=== PATIENT | male | born 2000 | race Caucasian/White ===

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

== ENCOUNTER → 2020-11-09 | Outpatient (CLI) | payer OTHER ==
[2020-11-09 10:34] LABS: HEMATOCRIT 41.7 % (42.0-52.0); HEMOGLOBIN 13.5 g/dl (13.5-17.5); MEAN CORPUSCULAR HEMOGLOBIN 28.5 pg (27.0-33.0); MEAN CORPUSCULAR HGB CONC 32.4 g/dl (32.0-36.5); MEAN CORPUSCULAR VOLUME 88.2 fl (80.0-96.0); PLATELET COUNT, AUTOMATED 248 10^3/uL (150-450); RED BLOOD COUNT 4.73 10^6/uL (4.30-6.10); WHITE BLOOD COUNT 6.2 10^3/uL (4.0-10.0)
[2020-11-09 11:45] LABS: ALBUMIN 3.8 GM/DL (3.2-5.2); ALT/SGPT 180 U/L (12-78); BILIRUBIN,TOTAL 0.4 MG/DL (0.2-1.0); BLOOD UREA NITROGEN 16 MG/DL (7-18); CALCIUM LEVEL 9.1 MG/DL (8.5-10.1); CARBON DIOXIDE LEVEL 26 MEQ/L (21-32); CHLORIDE LEVEL 108 MEQ/L (98-107); CHOLESTEROL LEVEL 152 MG/DL (<200); CHOLESTEROL RISK RATIO 4.222 (<5); CREATININE FOR GFR 1.01 MG/DL (0.70-1.30); GLOMERULAR FILTRATION RATE > 60.0 (>60); GLUCOSE, FASTING 103 MG/DL (70-100); HDL CHOLESTEROL 36 MG/DL (>40); LDL CHOLESTEROL 96 MG/DL (<100); NON-HDL-C 116 MG/DL; POTASSIUM SERUM 3.9 MEQ/L (3.5-5.1); SODIUM LEVEL 143 MEQ/L (136-145); TRIGLYCERIDES LEVEL 99 MG/DL (<150)
[2020-11-09 11:46] LABS: TOTAL 25(OH) VITAMIN D 12.8 NG/ML (30.0-100.0)
[2020-11-09 17:40] LABS: HEMOGLOBIN A1c 5.3 %
== END ==
LOC: M PLALAB 08:17
PROVIDERS: ATTEND Family Medicine
DX: D64.9 Anemia, unspecified (principal)

== ENCOUNTER 2022-01-13 00:32 | Emergency (ER) | payer OTHER ==
[~2022-01-13] VITALS: Ht 175.3 cm; Wt 143.2 kg
[2022-01-13 00:33] VITALS: BP 137/66
[2022-01-13] MEDS ORDERED: MELA5CAP2 PO (00:59)
== END 2022-01-13 03:21 | disposition home or self-care (01) ==
LOC: M ED 00:32
DX: R10.30 Lower abdominal pain, unspecified (principal); N50.819 Testicular pain, unspecified; Z91.018 Allergy to other foods

== ENCOUNTER 2022-05-27 19:00 | Emergency (ER) | payer OTHER ==
[~2022-05-27] VITALS: Ht 177.8 cm; Wt 146.0 kg
[~2022-05-27 19:00] MED LIST: MELA5CAP2 PO
[2022-05-27 19:03] VITALS: BP 153/71
[2022-05-27 20:02] LABS: RSV AMPLIFICATION NEGATIVE (NEGATIVE)
[2022-05-27] MEDS ORDERED: OSELTAMIVIR PHOSPHATE 75 MG CAP (TAMIFLU) PO ONE (20:25)
[2022-05-27] MEDS ORDERED: BENZONATATE 100MG CAPSULE PO ONE (20:25)
[2022-05-27] MEDS ORDERED: ONDA4TAB6 PO (20:25)
[2022-05-27] MEDS ORDERED: OSEL75CA PO (20:25)
[2022-05-27] MEDS ORDERED: KETOROLAC TROMETHAMINE 10 MG TAB PO ONE (20:25)
[2022-05-27] MEDS ORDERED: ONDANSETRON 4MG ORAL DISINTEGRATING TAB PO ONE (20:25)
== END 2022-05-27 20:53 | disposition home or self-care (01) ==
LOC: M ED 19:00
DX: J09.X3 Influenza due to identified novel influenza A virus with gastrointestinal manifestations (principal); R11.2 Nausea with vomiting, unspecified; R51.9 Headache, unspecified; I10 Essential (primary) hypertension; J45.909 Unspecified asthma, uncomplicated; K21.9 Gastro-esophageal reflux disease without esophagitis; F90.9 Attention-deficit hyperactivity disorder, unspecified type; Z91.018 Allergy to other foods

== ENCOUNTER 2022-06-14 16:57 | Emergency (ER) | payer OTHER ==
[~2022-06-14] VITALS: Ht 177.8 cm; Wt 141.5 kg
[~2022-06-14 16:57] MED LIST changes: +ONDA4TAB6 PO; +OSEL75CA PO
[2022-06-14] MEDS ORDERED: MELA3TAB10 PO (17:04)
[2022-06-14] MEDS ORDERED: ACETAMINOPHEN 325 MG TAB PO ONE (19:35)
[2022-06-14 19:44] VITALS: BP 137/77
== END 2022-06-14 19:52 | disposition home or self-care (01) ==
LOC: M ED 16:57
DX: S83.91XA Sprain of unspecified site of right knee, initial encounter (principal); W50.1XXA Accidental kick by another person, initial encounter; Y99.0 Civilian activity done for income or pay; J45.909 Unspecified asthma, uncomplicated; F90.9 Attention-deficit hyperactivity disorder, unspecified type; I10 Essential (primary) hypertension